=== PATIENT | female | born 1985 | race Caucasian/White ===

== ENCOUNTER 2022-04-18 09:18 | Outpatient (CLI) | payer OTHER, SELFPAY ==
[2022-04-18 14:01] LABS: Cholesterol* 194 mg/dL (90-199)
[2022-04-18 14:02] LABS: HDL Cholesterol* 96 mg/dL (>=50); LDL Cholesterol Calculated 89 mg/dL (<100); Triglycerides* 45 mg/dL (40-149)
[2022-04-18 14:42] LABS: Albumin* 4.3 g/dL (3.3-5.0); Chloride* 104 mmol/L (96-114); Sodium* 136 mmol/L (135-149)
[2022-04-18 14:43] LABS: Potassium* 4.3 mmol/L (3.6-5.1)
[2022-04-18 14:45] LABS: Alkaline Phosphatase* 44 U/L (40-150); Aspartate Amino Transferase* 23 U/L (12-35); Bilirubin Total* 0.5 mg/dL (0.1-1.5); Blood Urea Nitrogen* 12 mg/dL (5-24); Carbon Dioxide* 24 mmol/L (20-32); Creatinine* 0.7 mg/dL (0.5-1.5); Estimated Glomerular Filt Rate 116 ml/min; Glucose* 91 mg/dL (60-115); Total Protein* 6.8 g/dL (6.0-8.3)
[2022-04-18 14:46] LABS: Alanine Aminotransferase* 15 U/L (4-35); Calcium* 9.3 mg/dL (8.4-10.6)
== END 2022-04-18 09:19 | disposition home or self-care (01) ==
PROVIDERS: PCP Physician Assistant Medical; Visit Provider Physician Assistant Medical
DX: Z01.419 Encounter for gynecological examination (general) (routine) without abnormal findings (principal); I45.6 Pre-excitation syndrome; Z13.6 Encounter for screening for cardiovascular disorders; Z13.29 Encounter for screening for other suspected endocrine disorder
CPT/HCPCS: 80053; 80061; 84443

== ENCOUNTER 2022-08-09 15:06 | Outpatient (CLI) | payer OTHER, SELFPAY ==
--- NOTE | 2022-08-09 15:40 | CRLHL7_ITS ---
For Patients: As a result of the Cures Act, medical imaging exams and procedure reports are released immediately into your electronic medical record. You may view this report before your referring provider. If you have questions, please contact your health care provider. BILATERAL SCREENING MAMMOGRAM WITH COMPUTER-AIDED DETECTION AND TOMOSYNTHESIS TECHNIQUE: CC, MLO and implant-displaced views were obtained. These mammographic images have been obtained using full-field digital technique. These mammographic images were interpreted with the benefit of computer-aided detection. Breast tomosynthesis was used in this interpretation. COMPARISON FILM: None. Baseline study. FINDINGS: The breasts are heterogeneously dense, which may obscure small masses. IMPRESSION: There is no radiographic evidence for malignancy. ASSESSMENT: BI-RADS Category 2: Benign RECOMMENDATION: Annual mammograms beginning at age 40. A lay language report of this examination will be provided to the patient. MANUEL AWAD M.D. Diagnostic/Nuclear Medicine Radiologist [email or web address] TRISH:[email or web address] Transcribed: 08/10/2022, 1:[address]/Dictated by: Manuel Awad MD @ 08/10/2022 9:11:00 AM (Electronically Signed)
== END 2022-08-09 15:07 | disposition home or self-care (01) ==
LOC: MAMMO 15:08
PROVIDERS: PCP Physician Assistant Medical; Visit Provider Physician Assistant Medical
DX: Z12.31 Encounter for screening mammogram for malignant neoplasm of breast (principal); R92.2 Inconclusive mammogram
CPT/HCPCS: 77063; 77067

== ENCOUNTER 2024-04-08 15:10 | Outpatient (CLI) | payer OTHER, SELFPAY | END 2024-04-08 15:11 | disposition home or self-care (01) | PROVIDERS: PCP Physician Assistant Medical; Visit Provider Physician Assistant Medical | DX: R55 Syncope and collapse (principal); M25.50 Pain in unspecified joint; R20.2 Paresthesia of skin | CPT/HCPCS: 82306; 82607; 84443; 86140; 86618; 87086; 87468; 87469; 87484; 87798 ==

== ENCOUNTER 2024-09-29 10:09 | Outpatient (CLI) | payer OTHER, SELFPAY ==
[2024-10-01 14:24] LABS: HPV Source Cervical/Vag; HPV, High Risk by TMA Not Detected
== END 2024-09-29 10:10 | disposition home or self-care (01) ==
PROVIDERS: PCP Physician Assistant Medical; Visit Provider Physician Assistant Medical
DX: Z00.00 Encounter for general adult medical examination without abnormal findings (principal); Z11.51 Encounter for screening for human papillomavirus (HPV); Z12.4 Encounter for screening for malignant neoplasm of cervix
CPT/HCPCS: 80053; 80061; 84443; 87624; 87625; 88141; 88142

== ENCOUNTER 2025-03-23 10:31 | Outpatient (CLI) | payer OTHER, SELFPAY | END 2025-03-23 10:32 | disposition home or self-care (01) | PROVIDERS: PCP Physician Assistant Medical; Visit Provider Family Medicine | DX: R53.83 Other fatigue (principal) | CPT/HCPCS: 80048; 84443 ==